=== PATIENT | female | born 1990 | race Caucasian/White ===

== ENCOUNTER 2017-08-02 12:23 | Emergency (ER) | payer OTHER ==
[~2017-08-02] VITALS: Ht 172.7 cm; Wt 129.7 kg
[~2017-08-02 12:23] MED LIST: OMEP20CA9 PO; RANI150T9 PO
[2017-08-02 12:40] VITALS: Ht 172.7 cm; Wt 129.7 kg
[2017-08-02] MEDS ORDERED: MECL12.574 PO (14:19)
--- NOTE | 2017-08-02 14:25 | ERD ---
ER Documentation Chief Complaint Chief Complaint R EAR PAIN WAS CLEANING HER EAR AND BALANCE FEELS "OFF" HPI This patient is an otherwise healthy 27-year-old female presenting to the emergency department with complaints of right ear pain with associated mild vertigo which began this morning. Symptoms are intermittent. She states vertigo symptoms last for 1-2 seconds and then spontaneously resolved. She denies any fevers, chills, or other symptoms at this time. She is taking no medication for relief of symptoms. ROS All systems reviewed and are negative except as per history of present illness. Medications Home Meds Active Scripts Meclizine Hcl* (Antivert*) 12.5 Mg Tab, 12.5 MG PO Q6H Y for DIZZINESS, #20 TAB Prov:REGINA GONZALEZ PA-C 08/02/17 Ranitidine Hcl* (Zantac*) 150 Mg Tablet, 150 MG PO BID Y for PAIN, #30 TAB Prov:CHECO LEA PA-C 09/22/15 Omeprazole* (Prilosec*) 20 Mg Capsule.dr, 20 MG PO DAILY, #30 CAP Prov:CHECO LEA PA-C 09/22/15 Allergies Allergies: Coded Allergies: No Known Drug Allergies (Verified Allergy, Unknown, 08/02/17) PMhx/Soc Medical and Surgical Hx: pt denies Medical Hx, pt denies Surgical Hx History of Surgery: No Anesthesia Reaction: No Hx Neurological Disorder: No Hx Respiratory Disorders: No Hx Cardiac Disorders: No Hx Psychiatric Problems: No Hx Miscellaneous Medical Probl: No Hx Alcohol Use: Yes (OCCASSIONALLY) Hx Substance Use: No Hx Tobacco Use: No Smoking Status: Never smoker Physical Exam Vitals Vital Signs Date Time Temp Pulse Resp B/P Pulse Ox O2 Delivery O2 Flow Rate FiO2 08/02/17 12:40 98.0 80 18 127/75 97 Physical Exam Const: Nontoxic, well-appearing female in no acute distress. Head: Atraumatic Eyes: Normal Conjunctiva ENT: Normal External Ears, Nose and Mouth. There is no mastoid tenderness palpation bilaterally. The tympanic membranes bilaterally are clear with no erythema or bulging. Skin: No petechiae or rashes Back: No midline or flank tenderness Ext: No cyanosis, or edema Neur: Awake and alert Psych: Normal Mood and Affect Procedures/MDM This patient is a very pleasant 27-year-old female presenting to the emergency department with complaints of right ear pain and vertigo. Physical examination is essentially unremarkable. The patient does not appear dizzy or unstable on her feet. She states she has no vertigo symptoms at this time. Symptoms may be secondary to benign positional vertigo. The patient was advised on how to perform the Vladimir maneuver. She was stable for discharge and appropriate for outpatient management with a prescription for meclizine. Her questions and concerns were addressed. She is to have close follow-up with her primary care physician. No evidence of life-threatening pathology at time of discharge. The patient is to return immediately for any new or worsening symptoms. Departure Diagnosis: Primary Impression: Right ear pain Additional Impression: Vertigo Condition: Fair Patient Instructions: Inner Ear Problems: Causes of Dizziness (Vertigo), Earache W/O Infection (Adult) Referrals: [facility] YOU HAVE RECEIVED A MEDICAL SCREENING EXAM AND THE RESULTS INDICATE THAT YOU DO NOT HAVE A CONDITION THAT REQUIRES URGENT TREATMENT IN THE EMERGENCY DEPARTMENT. FURTHER EVALUATION AND TREATMENT OF YOUR CONDITION CAN WAIT UNTIL YOU ARE SEEN IN YOUR DOCTORS OFFICE WITHIN THE NEXT 1-2 DAYS. IT IS YOUR RESPONSIBILITY TO MAKE AN APPOINTMENT FOR FOLOW-UP CARE. IF YOU HAVE A PRIMARY DOCTOR --you should call your primary doctor and schedule an appointment IF YOU DO NOT HAVE A PRIMARY DOCTOR YOU CAN CALL OUR PHYSICIAN REFERRAL HOTLINE AT IF YOU CAN NOT AFFORD TO SEE A PHYSICIAN YOU CAN CHOSE FROM THE FOLLOWING [facility] [address] [facility]. [facility] [address] [facility] [facility] [address] [facility]. [facility] [address] [facility]. [facility] [address] [facility]. [facility]. [address] Additional Instructions: Call your primary care doctor TOMORROW for an appointment during the next 1-2 days.See the doctor sooner or return here if your condition worsens before your appointment time. REGINA GONZALEZ PA-C Aug 02, 2017 14:25
[2017-08-02 15:02] VITALS: BP 124/67; PULSE 75
== END 2017-08-02 15:05 | disposition home or self-care (01) ==
LOC: FTE 12:23
DX: H92.01 Otalgia, right ear (principal); R42 Dizziness and giddiness
CPT/HCPCS: 99283

== ENCOUNTER 2018-10-20 20:40 | Emergency (ER) | payer SELFPAY ==
[~2018-10-20] VITALS: Ht 172.7 cm; Wt 139.1 kg
[~2018-10-20 20:40] MED LIST changes: +MECL12.574 PO; +RANI150T35 PO; -RANI150T9 PO
[2018-10-20 20:58] VITALS: Ht 172.7 cm; Wt 139.1 kg
[2018-10-20] MEDS ORDERED: IBUPROFEN 200 MG TAB PO ONE (22:00)
[2018-10-20] MEDS: ACETAMINOPHEN 325 MG TAB PO ONE ×2 (22:27→22:28)
[2018-10-20 22:35] VITALS: PULSE 140
[2018-10-20] MEDS ORDERED: SOD CHLORIDE 0.9% 1,000 ML IV STA ×2 (22:39→23:55)
[2018-10-20] MEDS ORDERED: ACETAMINOPHEN 500 MG TAB PO STA (22:39)
[2018-10-20] MEDS ORDERED: GUAI5SYR2 PO (23:51)
[2018-10-20] MEDS ORDERED: IBUP800T48 PO (23:51)
[2018-10-21 01:53] VITALS: BP 127/80; RESP 16
--- NOTE | 2018-10-21 01:53 | ERD ---
ER Documentation Chief Complaint Chief Complaint flu-liked symtoms (fever,body aches,weakness,congestion) x 3 days HPI 28-year-old female presenting with flulike symptoms for the past 2-3 days. She complains of fever, body aches, nasal congestion, sore throat, and cough. She has been taking ibuprofen for her fever. She denies any chest pain, shortness of breath, abdominal pain, dysuria, neck stiffness, vomiting or diarrhea ROS All systems reviewed and are negative except as per history of present illness. Medications Home Meds Active Scripts Guaifenesin-Dextromethorphan* (Robitussin* DM) 100MG/10MG/5ML Syrup, 10 ML PO Q4H PRN for COUGH, #200 ML Prov:LULÚ TRACY MD 10/20/18 Ibuprofen* (Motrin*) 800 Mg Tab, 800 MG PO Q6H PRN for PAIN AND OR ELEVATED TEMP, #30 TAB Prov:LULÚ TRACY MD 10/20/18 Meclizine Hcl* (Antivert*) 12.5 Mg Tab, 12.5 MG PO Q6H PRN for DIZZINESS, #20 TAB Prov:REGINA GONZALEZ PA-C 08/02/17 Ranitidine Hcl* (Zantac*) 150 Mg Tablet, 150 MG PO BID PRN for PAIN, #30 TAB Prov:CHECO LEA PA-C 09/22/15 Omeprazole* (Prilosec*) 20 Mg Capsule.dr, 20 MG PO DAILY, #30 CAP Prov:CHECO LEA PA-C 09/22/15 Allergies Allergies: Coded Allergies: No Known Drug Allergies (Verified Allergy, Unknown, 08/02/17) PMhx/Soc Medical and Surgical Hx: pt denies Medical Hx, pt denies Surgical Hx History of Surgery: No Anesthesia Reaction: No Hx Neurological Disorder: No Hx Respiratory Disorders: No Hx Cardiac Disorders: No Hx Psychiatric Problems: No Hx Miscellaneous Medical Probl: No Hx Alcohol Use: Yes (OCCASSIONALLY) Hx Substance Use: No Hx Tobacco Use: No Smoking Status: Never smoker FmHx Family History: No diabetes Physical Exam Vitals Vital Signs Date Temp Pulse Resp B/P (MAP) Pulse Ox O2 O2 Flow FiO2 Time Delivery Rate 10/20/18 99.6 23:53 10/20/18 102.6 140 24 127/76 97 Room Air 22:35 (93) 10/20/18 104.1 21:48 10/20/18 104.1 139 20 174/88 98 20:58 (116) Physical Exam Const: No acute distress, nontoxic Head: Atraumatic Eyes: Normal Conjunctiva ENT: Normal External Ears, Nose and Mouth. Neck: Full range of motion. No meningismus. Resp: Clear to auscultation bilaterally Cardio: Tachycardic with regular rhythm, no murmurs Abd: Soft, non tender, non distended. Normal bowel sounds Skin: No petechiae or rashes Back: No midline or flank tenderness Ext: No cyanosis, or edema Neur: Awake and alert Psych: Normal Mood and Affect Results 24 hrs Laboratory Tests Test 10/20/18 21:49 10/20/18 23:01 POC Beta HCG, Qualitative NEGATIVE Bedside Urine pH (LAB) 7.5 Bedside Urine Protein (LAB) Negative Bedside Urine Glucose (UA) Negative Bedside Urine Ketones (LAB) Negative Bedside Urine Blood Trace-lysed Bedside Urine Nitrite (LAB) Negative Bedside Urine Leukocyte Esterase (L Negative Current Medications Medications Dose Sig/Mushtaq Start Time Status Last (Trade) Ordered Route PRN Stop Time Admin Dose Reason Admin 650 mg ONCE ONCE 10/20/18 DC 10/20/18 Acetaminophen PO 22:00 22:28 (Tylenol 10/20/18 22:01 Tab) Ibuprofen 400 mg ONCE ONCE 10/20/18 DC 10/20/18 (Motrin) PO 22:00 21:48 10/20/18 22:01 Sodium 1,000 ml @ Q1H STAT 10/20/18 DC 10/20/18 Chloride 1,000 mls/hr IV 22:39 22:49 10/20/18 23:38 1,000 mg ONCE STAT 10/20/18 DC Acetaminophen PO 22:39 (Tylenol 10/20/18 22:41 Tab) Sodium 1,000 ml @ Q1H STAT 10/20/18 DC 10/21/18 Chloride 1,000 mls/hr IV 23:55 00:00 10/21/18 00:54 Procedures/MDM Chest X-ray 1V Interpreted by me: Soft Tissue: No acute abnormalities Bones: No acute abnormalities Mediastinum/Cardiac Silhouette/Lungs: No acute abnormalities Patient presents with flulike symptoms with vitals notable for tachycardia and fever. She was treated with Motrin and Tylenol with improvement of her fever. I have a low suspicion for serious bacterial infection. She was given IV fluids with improvement of her vital signs. She was still tachycardic upon discharge, but I am not very concerned about this as I do not suspect more serious etiology of her symptoms. Patient was discharged with ibuprofen and cough medications. Strict return precautions discussed. Patient's blood pressure was elevated (>120/80) but appears stable without evidence of hypertension emergency or urgency. The patient was counseled about the risks of hypertension and urged to pursue outpatient monitoring and therapy within a week with their primary care physician. Departure Diagnosis: Primary Impression: Influenza-like symptoms Condition: Stable Patient Instructions: Influenza (Adult) Referrals: NO PRIMARY,CARE PHYSICIAN (PCP) Additional Instructions: Return to the ER if you have any worsening symptoms. Make sure you stay well- hydrated and rest as much as possible. LULÚ TRACY MD Oct 21, 2018 01:53
== END 2018-10-21 01:56 | disposition home or self-care (01) ==
LOC: E/R 20:40
DX: R50.9 Fever, unspecified (principal); R40.2142 Coma scale, eyes open, spontaneous, at arrival to emergency department; R40.2362 Coma scale, best motor response, obeys commands, at arrival to emergency department; R40.2252 Coma scale, best verbal response, oriented, at arrival to emergency department; R53.1 Weakness; R52 Pain, unspecified; R09.81 Nasal congestion
CPT/HCPCS: 71045; 81003; 81025; 96360; 96361; 99284; J7030